=== PATIENT | male | born 1935 | race Caucasian/White ===

== ENCOUNTER 2023-03-25 11:07 | Outpatient (CLI) | payer MEDICARE | END 2023-03-25 11:08 | disposition home or self-care (01) | LOC: CSHRAD 11:07 | PROVIDERS: ATTEND Specialist | DX: J18.9 Pneumonia, unspecified organism (principal); J94.8 Other specified pleural conditions; R91.8 Other nonspecific abnormal finding of lung field | CPT/HCPCS: 71046 ==

== ENCOUNTER 2024-03-17 17:32 | Emergency (ER) | payer MEDICARE ==
[~2024-03-17 17:32] MED LIST: Iopamidol 300 61% 100 ML VIAL FS ONE
[2024-03-17 18:21] LABS: #Basophils 0.07 10x3/uL (0.0-0.2); #Eosinphils 0.07 10x3/uL (0.0-0.5); #Monocytes 1.18 10x3/uL (0.0-1.1); #Neutrophils 14.16 10x3/uL (1.5-8.4); %Basophils 0.4 % (0.0-2.0); %Eosinophils 0.4 % (0.0-6.0); %Lymphocytes 10.2 % (18.0-47.0); %Monocytes 6.8 % (0.0-10.0); %Neutrophils 81.6 % (40.0-75.0); Hematocrit 36.7 % (38.8-50.0); Hemoglobin 11.5 g/dL (13.5-17.5); Mean Corpuscular HGB CONC 31.3 g/dL (32.0-36.0); Mean Corpuscular Hemoglobin 32.5 pg (27.0-33.0); Mean Corpuscular Volume 103.7 fL (81.2-95.1); Mean Platelet Volume 11.6 fL (7.4-10.4); Platelet Count 314 10x3/uL (150-450); RBC Distribution Width 11.9 % (11.5-14.5); Red Blood Cell (RBC) Count 3.54 10x6/uL (4.32-5.72); White Blood Cell (WBC) Count 17.4 10x3/uL (3.5-10.5)
[2024-03-17 18:36] LABS: ALT (SGPT) 9 U/L (8-55); AST (SGOT) 19 U/L (5-34); Albumin 2.7 g/dL (3.4-4.8); Alkaline Phosphatase 58 U/L (40-110); Anion Gap 12 mmol/L (10-20); BUN (Urea Nitrogen) 27 mg/dL (8.4-25.7); Bilirubin, Total 0.8 mg/dL (0.2-1.2); Calc. Creatinine Clearance 0 mL/min (70-130); Calcium 8.8 mg/dL (7.8-10.44); Carbon Dioxide 29 mmol/L (23-31); Chloride 104 mmol/L (98-107); Estimated GFR 87; Glucose 116 mg/dL (83-110); Lipase 63 U/L (8-78); Magnesium 2.2 mg/dL (1.6-2.6); Potassium 5.2 mmol/L (3.5-5.1); Protein, Total 6.7 g/dL (5.8-8.1); Sodium 140 mmol/L (136-145)
[2024-03-17 18:39] LABS: Troponin I 0.011 ng/mL (< 0.028)
[2024-03-17] MEDS ORDERED: Ondansetron PF 4 MG/2 ML Vial ONE (20:36)
[2024-03-17 22:51] LABS: Bilirubin Neg (Negative); Blood, Urine 50 (Negative); Clarity Cloudy (Clear); Glucose, Urine (Dipstick) Normal (Negative); Ketone, Urine Negative (Negative); Leukocyte 500 (Negative); Nitrite Positive (Negative); Protein, Urine (Dipstick) 30 mg/dl (Neg-Trace); Urobilinogen Normal mg/dL (Less than 2)
[2024-03-17] MEDS ORDERED: Cefepime 2 GM VIAL ONE (22:59)
[2024-03-17 23:03] LABS: RBC/HPF 0-3 HPF (0-3)
[2024-03-17 23:04] LABS: Bacteria/HPF 4+ HPF (None Seen); CAUTI Indications for Culture Fever or rigors; Squamous Epithelial 0-3 HPF (0-3); Urine Culture Reflex Yes Yes; WBC/HPF Greater Than 50 HPF (0-3)
== END 2024-03-18 01:12 | disposition short-term general hospital (02) ==
LOC: CSHERS 17:32
DX: N39.0 Urinary tract infection, site not specified (principal); R09.02 Hypoxemia; I50.9 Heart failure, unspecified; I48.91 Unspecified atrial fibrillation
CPT/HCPCS: 70450; 71045; 74177; 80053; 81001; 83605; 83690; 83735; 84484; 85025; 87040; 87086; 87149 ×2; 93005; 94760; J0692; J2405; 36415; 87077; 87186; 93010; 96374; Q9967